=== PATIENT | female | born 1995 | race Caucasian/White ===

== ENCOUNTER → 2020-10-16 10:03 | Outpatient (CLI) | payer OTHER, SELFPAY ==
[2020-10-16 12:24] LABS: Add Manual Diff / Slide Review NO; Basophils Absolute Auto 0 /uL (0-100); Basophils Percent Auto 0.4 % (0-2); Eosinophils Absolute Auto 0 /uL (0-450); Eosinophils Percent Auto 0.4 % (2-4); Hematocrit 36.7 % (36-46); Hemoglobin 12.5 g/dL (12.0-16.0); Lymphocytes Absolute Auto 2200 /uL (1100-4500); Lymphocytes Percent Auto 22.1 % (25-40); Mean Corpuscular HGB Conc 34.1 % (30-36); Mean Corpuscular Hemoglobin 29.7 PG (26-34); Monocytes Absolute Auto 600 /uL (0-900); Monocytes Percent Auto 6.2 % (3-14); Neutrophils Absolute Auto 6900 /uL (1500-7000); Neutrophils Percent Auto 70.9 % (50-75); Platelet Count 205 X10^3/uL (150-400); Red Blood Cell Count 4.22 X10^6/uL (4.0-5.2); Red Cell Distribution Width 12.7 % (11.6-14.8); White Blood Cell Count 9.8 X10^3/uL (4.5-11.0)
[2020-10-16 12:40] LABS: Alanine Aminotransferase 9 IU/L (<35); Albumin 3.3 g/dL (3.5-5.0); Albumin Globulin Ratio 1.1 (1.0-2.8); Alkaline Phosphatase 92 U/L (38-126); Aspartate Aminotransferase 18 IU/L (14-36); BUN Creatinine Ratio 8.3 (6-22); Bilirubin Total 0.3 mg/dL (0.2-1.3); Blood Urea Nitrogen 3 mg/dL (7-17); Calcium 8.6 mg/dL (8.4-10.2); Carbon Dioxide 23 mmol/L (22-32); Chloride 106 mmol/L (98-107); Estimated Glomerular Filt Rate > 60.0 mL/min (>60); GTT (PREG) 1 Hour PP 50gm Dose 131 mg/dL (76-139); Globulin 3.1 g/dL (1.7-4.1); Glucose 131 mg/dL (70-100); HEMOLYSIS < 15 (0-50); Potassium 4.2 mmol/L (3.4-5.1); Sodium 133 mmol/L (137-145); Total Protein 6.4 g/dL (6.3-8.2); Uric Acid 2.7 mg/dL (2.5-6.2)
[2020-10-16 20:39] LABS: Creatinine Urine Random 76.5 mg/dL; Protein (Total) Urine Random < 5 mg/dL (0-12); Protein Creatinine Ratio Urine 0.06 GRAM/24H
== END ==
PROVIDERS: Referring Provider Family Medicine; Visit Provider Family Medicine
DX: O26.899 Other specified pregnancy related conditions, unspecified trimester (principal); Z67.91 Unspecified blood type, Rh negative; I10 Essential (primary) hypertension
CPT/HCPCS: 36415; 80053; 82570; 82950; 84156; 84550; 85025; 86850

== ENCOUNTER → 2020-10-23 07:38 | Outpatient (CLI) | payer OTHER, SELFPAY ==
[2020-10-23 09:01] LABS: Collection Time Urine 24 Hours; Protein (Total) Urine Random 6 mg/dL (0-12); Total Protein 24 Hour Urine 83 mg/day (42-225); Total Volume Urine 1375 mL
== END ==
PROVIDERS: Referring Provider Family Medicine; Visit Provider Family Medicine
DX: I10 Essential (primary) hypertension (principal); Z3A.30 30 weeks gestation of pregnancy
CPT/HCPCS: 84156

== ENCOUNTER → 2020-10-24 12:29 | Outpatient (CLI) | payer OTHER, SELFPAY ==
--- NOTE | 2020-10-24 12:30 | DI.US.S_ITS ---
PROCEDURE: US OB LIMITED INDICATIONS: SIZE LESS THAN DATES OUTSIDE/PRIOR DATING DATA: Last menstrual period (LMP): 03/17/2020 . LMP-based estimated date of delivery (TARAH): 12/22/2020 . First dating scan (date and location): 07/26/2020 . Estimated date of delivery (TARAH) from first dating scan: 12/29/2020 . TECHNIQUE: Real-time scanning was performed of the fetus, with image documentation. Endovaginal scanning: None COMPARISON: None. FINDINGS: A single living intrauterine gestation is present. Presentation: Vertex. Placenta: Placental position is anterior, without previa. Amniotic fluid index: 20.8 cm, normal range is 5-24 cm. heart rate: 127 beats per minute. Maternal cervical canal: Not well seen Biparietal diameter: 7.9 cm, 31 week 6 day Head circumference: 29.1 cm, 32 week 0 day Abdominal circumference: 26.4 cm, 30 week 4 day Femur length: 6.0 cm, 31 week 3 day EGA by initial ultrasound: 30 week 4 day Composite gestational age today: 31 week 3 day Estimated weight: 1693 g, 55th percentile IMPRESSION: Single live intrauterine corresponding with 30 week 4 day gestation by ultrasound Approved by: Brannon Vitale M.D. on 10/24/2020 at 16:53
== END ==
PROVIDERS: Referring Provider Family Medicine; Visit Provider Family Medicine
DX: Z36.4 Encounter for antenatal screening for fetal growth retardation (principal); Z3A.31 31 weeks gestation of pregnancy
CPT/HCPCS: 76815

== ENCOUNTER 2020-11-07 10:41 | Emergency (ER) | payer OTHER, SELFPAY ==
[2020-11-07] VITALS (8 sets, daily range): BP systolic 106–126; BP diastolic 56–76; PULSE 76–96; RESP 14–20; TEMP 36.8; O2SAT 97–99; BMI 26.4
[2020-11-07 11:05] LABS: Add Manual Diff / Slide Review NO; Basophils Absolute Auto 0 /uL (0-100); Basophils Percent Auto 0.5 % (0-2); Eosinophils Absolute Auto 0 /uL (0-450); Eosinophils Percent Auto 0.4 % (2-4); Hematocrit 35.2 % (36-46); Hemoglobin 12.1 g/dL (12.0-16.0); Lymphocytes Absolute Auto 1700 /uL (1100-4500); Lymphocytes Percent Auto 17.3 % (25-40); Mean Corpuscular HGB Conc 34.3 % (30-36); Mean Corpuscular Hemoglobin 29.3 PG (26-34); Mean Corpuscular Volume 85.6 fL (80-100); Monocytes Absolute Auto 700 /uL (0-900); Monocytes Percent Auto 7.2 % (3-14); Neutrophils Absolute Auto 7300 /uL (1500-7000); Neutrophils Percent Auto 74.6 % (50-75); Platelet Count 206 X10^3/uL (150-400); Red Blood Cell Count 4.12 X10^6/uL (4.0-5.2); Red Cell Distribution Width 12.8 % (11.6-14.8); White Blood Cell Count 9.8 X10^3/uL (4.5-11.0)
[2020-11-07 11:11] LABS: HEMOLYSIS < 15 (0-50)
[2020-11-07 11:16] LABS: Alanine Aminotransferase 7 IU/L (<35); Albumin 3.2 g/dL (3.5-5.0); Alkaline Phosphatase 117 U/L (38-126); Aspartate Aminotransferase 18 IU/L (14-36); BUN Creatinine Ratio 16.1 (6-22); Bilirubin Total 0.4 mg/dL (0.2-1.3); Blood Urea Nitrogen 5 mg/dL (7-17); Calcium 8.6 mg/dL (8.4-10.2); Carbon Dioxide 22 mmol/L (22-32); Chloride 107 mmol/L (98-107); Creatine Kinase < 20 U/L (30-135); Estimated Glomerular Filt Rate > 60.0 mL/min (>60); Globulin 3.3 g/dL (1.7-4.1); Glucose 86 mg/dL (70-100); Lipase 30 U/L (23-300); Potassium 3.8 mmol/L (3.4-5.1); Sodium 132 mmol/L (137-145); Total Protein 6.5 g/dL (6.3-8.2)
--- NOTE | 2020-11-07 11:26 | ED_ITS ---
HPI - Chest Pain General Chief Complaint: Chest Pain Stated Complaint: Chest Pain and near syncope 34 wks Time Seen by Provider: 11/07/20 10:45 Source: patient and EMS Mode of arrival: EMS Limitations: no limitations History of Present Illness HPI narrative: Patient is a 24-year-old female. Otherwise healthy. Is 34 weeks . Not having cramping. No vaginal bleeding. No loss of fluid. No fevers. Is under immunized against COVID-19. Was brought in by EMS for evaluation. She states that this morning she was generally not feeling very well. She was told to go to the medical department on the [facility]. At the medical department she describes some chest discomfort and some problems allie thing. EMS was called. She did receive fentanyl prior to arrival. She states that her daughter was recently diagnosed with RSV. The patient does have sinus congestion and postnasal drip and also your discomfort. She has not tried anything for the symptoms prior to arrival. She did not pass out but felt like she was going to pass out. The time my evaluation she did report improvement of symptoms. Related Data Home Medications Medication Instructions Recorded Confirmed prenat.vits,chelo,[id number] 1 tab PO DAILY 10/09/20 10/27/20 Allergies Allergy/AdvReac Type Severity Reaction Status Date / Time No Known Drug Allergies Allergy Verified 11/07/20 10:46 Review of Systems Constitutional Comments: No fevers ENT Ears, Nose, Mouth, and Throat: Reports as per HPI Cardiovascular Cardiovascular: Reports system reviewed and no additional complaints, except as documented Respiratory Respiratory: Reports system reviewed and no additional complaints, except as documented Gastrointestinal Gastrointestinal: Reports system reviewed and no additional complaints, except as documented Genitourinary Genitourinary: Reports system reviewed and no additional complaints, except as documented Integumentary/Breasts Skin/Breast: Reports system reviewed and no additional complaints, except as doc umented Neurologic Neurologic: Reports as per HPI Hematologic/Lymphatic On Anticoagulants: No Allergic/Immunologic Allergic/Immunologic: Reports system reviewed and no additional complaints, except as documented Patient History Medical History Acid reflux Anxiety Chronic hypertension Depression Dermographia Gastric ulcer History of being hospitalized (~08/2019) Hyperemesis (~12/30/19) Kidney infection (~08/2019) Ovarian cyst during (~2019) Post depression induced hypertension (~2019) (spontaneous vaginal delivery) (~08/11/19) Surgical History (Updated 10/09/20 @ 12:56 by Myra Corbin RN) History of esophagogastroduodenoscopy (EGD) Family History (Updated 10/09/20 @ 12:49 by Myra Corbin RN) Father Diabetes mellitus Type 2 diabetes mellitus Obesity Mother Hypertension Arthritis Acid reflux Grandfather Heavy smoker Cancer Lung cancer Grandmother Cancer Colon cancer Colostomy present Grandfather Cardiac anomaly Grandmother No problems noted. Family/Other Skin cancer Sister Anxiety Depression Seizures Social History marital status: number of children: 1 household members: children lives independently: Yes pets and animals: Yes (X 2 black labs back home in [place]) education level: high school (Plans to go to College still : considering Teaching Early Ed. ? 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) current occupational exposures/hazards: Yes special terrie needs: No Smoking Status: Never smoker second hand exposure: No alcohol intake: former (pre- : on occasion (rare)) substance use type: does not use Smoking Status: Never smoker alcohol intake frequency: holidays/special occasions only Substance Use Type: does not use Exam Initial Vital Signs Initial Vital Signs: Vital Signs Temperature 98.3 F 11/07/20 10:40 Pulse Rate 96 H 11/07/20 10:40 Respiratory Rate 14 11/07/20 10:40 Blood Pressure 115/76 11/07/20 10:40 Pulse Oximetry 97 11/07/20 10:40 Const General: cooperative, comfortable and well developed [facility] Head: normal to inspection and normocephalic Eyes General: appearance normal, both eyes and all related structures Resp Effort & Inspection: normal respiratory effort Auscultation: clear to auscultation bilaterally Cardio Rate: regular rate Rhythm: regular rhythm GI Other: Gravid abdomen Skin General: no rashes or lesions noted Lesions: no lesions Neuro General: patient alert, patient awake, patient oriented x3 and moves all extr emities Extrem General: normal to inspection and capillary refill normal Psych Appearance: grossly normal and well kempt Scores [facility] [place] coma scale eye opening: Spontaneous [place] coma scale verbal response: Orientated [place] coma scale motor response: Obey commands [place] coma scale total score: 15 Course Orders Ordered: ED Orders 11/07/20 10:48 EKG-12 Lead Stat 11/07/20 11:00 Complete Blood Count AUTO DIFF Stat Comprehensive Metabolic Panel Stat Lipase Stat Troponin & CK Cardiac Panel Stat 11/07/20 11:36 COVID19 -Nasal swab/Pre-Proc Stat Vital Signs Vital signs: Vital Signs - 8 hr 11/07/20 10:40 11/07/20 10:44 11/07/20 10:46 Temperature 98.3 F Pulse Rate 96 H Respiratory Rate 14 Blood Pressure 115/76 119/74 Pulse Oximetry 97 98 11/07/20 11:00 11/07/20 11:30 11/07/20 12:00 Temperature Pulse Rate 84 76 79 Respiratory Rate 15 16 20 Blood Pressure 126/74 116/75 125/59 L Pulse Oximetry 97 98 99 11/07/20 12:30 11/07/20 13:24 Temperature Pulse Rate 80 95 H Respiratory Rate 16 Blood Pressure 107/56 L 106/71 Pulse Oximetry 98 99 MDM - Chest Pain Lab Data Attestation: I reviewed the patient's lab results. Result diagrams: 11/07/20 11:00 11/07/20 11:00 Labs: Lab Results 11/07/20 11/07/20 11/07/20 Range/Units 11:00 11:00 11:36 WBC 9.8 (4.5-11.0) X10^3/uL RBC 4.12 (4.0-5.2) X10^6/uL Hgb 12.1 (12.0-16.0) g/dL Hct 35.2 L (36-46) % MCV 85.6 (80-100) fL MCH 29.3 (26-34) PG MCHC 34.3 (30-36) % RDW 12.8 (11.6-14.8) % Plt Count 206 (150-400) X10^3/uL Neut % (Auto) 74.6 (50-75) % Lymph % (Auto) 17.3 L (25-40) % Tillman % (Auto) 7.2 (3-14) % Eos % (Auto) 0.4 L (2-4) % Baso % (Auto) 0.5 (0-2) % Neut # (Auto) 7300 H (1597-4422) /uL Lymph # (Auto) 1700 (6345-8150) /uL [place]man # (Auto) 700 (0-900) /uL Eos # (Auto) 0 (0-450) /uL Baso # (Auto) 0 (0-100) /uL Sodium 132 L (137-145) mmol/L Potassium 3.8 (3.4-5.1) mmol/L Chloride 107 (98-107) mmol/L Carbon Dioxide 22 (22-32) mmol/L BUN 5 L (7-17) mg/dL Creatinine 0.31 L (0.52-1.04) mg/dL Estimated GFR > 60.0 (>60) mL/min BUN/Creatinine Ratio 16.1 (6-22) Glucose 86 (70-100) mg/dL Calcium 8.6 (8.4-10.2) mg/dL Total Bilirubin 0.4 (0.2-1.3) mg/dL AST 18 (14-36) IU/L ALT 7 (<35) IU/L Alkaline Phosphatase 117 (38-126) U/L Total Creatine Kinase < 20 L (30-135) U/L CK-MB (CK-2) TNP CK-MB (CK-2) Rel Index TNP Troponin I < 0.012 (0.01-0.034) ng/mL Total Protein 6.5 (6.3-8.2) g/dL Albumin 3.2 L (3.5-5.0) g/dL Globulin 3.3 (1.7-4.1) g/dL Albumin/Globulin Ratio 1.0 (1.0-2.8) Lipase 30 (23-300) U/L SARS-CoV-2 (PCR) Negative (Negative) Urine Dip Bedside Urine Glucose Negative Bedside Urine Bilirubin - Negative Bedside Urine Ketone +++ 80 Urine Specific [place] 1.020 Bedside Urine Occult Blood - Negative Bedside Urine pH 7.0 Bedside Urine Protein +/- 15 Bedside Urine Urobilinogen - Negative Bedside Urine Nitrite - Negative Bedside Urine Leukocytes - Negative Esterase ECG Data Attestation: I personally reviewed and interpreted this ECG as follows: Interpretation: Sinus rhythm Ventricular rate 91 Sinus arrhythmia Normal QRS Normal QTC No ST T wave changes MDM Narrative Medical decision making narrative: EKG is unremarkable, she is not having any lifestyle coordinator related symptoms. Urine has ketones. Patient states she has not been drinking well the past couple days. She is not clinically dehydrated. Low suspicion for ACS. heart tones showed appropriate heart rate. Feel that we can hold on further workup for now. She was given return precautions and follow-up instructions. She expressed understanding and agreement. Discharge Plan Departure Patient Disposition: Home Clinical Impression: , Lightheadedness Instructions: DI for -- Discomforts and Remedies Activity Restrictions/Additional Instructions: I do recommend that you increase your fluid intake. Keep all of your scheduled medical appointments. Return to the emergency department for any new or worsening symptoms Prescriptions: No Action prenat.vits,chelo,[id number] Tablet 1 tab PO DAILY RF: 0 Referrals: Cassidy Joy MD [Primary Care Provider] -
[2020-11-07 11:30] LABS: Troponin I < 0.012 ng/mL (0.01-0.034)
[2020-11-07 12:06] LABS: COVID19 -Nasal RAPID Negative (Negative)
== END 2020-11-07 13:25 | disposition home or self-care (01) ==
PROVIDERS: Emergency Provider Emergency Medicine; PCP Family Medicine
DX: O26.893 Other specified pregnancy related conditions, third trimester (principal); R07.9 Chest pain, unspecified; R42 Dizziness and giddiness; Z3A.34 34 weeks gestation of pregnancy; Z20.822 Contact with and (suspected) exposure to COVID-19
CPT/HCPCS: 36415; 80053; 81003; 82550; 83690; 84484; 85025; 87635; 93005; 93010; 99284; C9803

== ENCOUNTER → 2020-11-16 10:46 | Outpatient (CLI) | payer OTHER, SELFPAY ==
--- NOTE | 2020-11-16 10:47 | DI.US.S_ITS ---
PROCEDURE: US OB LIMITED INDICATIONS: GROWTH, SIZE<DATES OUTSIDE/PRIOR DATING DATA: Last menstrual period (LMP): 03/17/2020. LMP-based estimated date of delivery (TARAH): 12/22/2020 . First dating scan (date and location): 07/26/2020 . Estimated date of delivery (TARAH) from first dating scan: 12/29/2020 . TECHNIQUE: Real-time scanning was performed of the fetus, with image documentation and biometric measurements. Endovaginal scanning: No COMPARISON: [facility], OB LIMITED, 10/24/2020, 13:36. FINDINGS: General: A single living intrauterine gestation is present. Presentation: Vertex. Placenta: Placental position is anterior , without previa. Amniotic fluid index: 10.3 cm, normal range is 5-24 cm. heart rate: 117 beats per minute. Maternal cervical canal: Not well seen. biometrics: Biparietal diameter: 34 weeks 5 days Head circumference: 34 weeks 3 days Abdominal circumference: 33 weeks Femur length: 34 weeks 5 days Estimated gestational age from initial scan: 33 weeks 6 days Composite gestational age from present scan: 34 weeks 2 days Estimated weight and percentile: 2285 g; 40 second percentile Measurement variability for biometric dating: +/- 7 days from 14 weeks to 15 weeks 6 days gestation, +/- 10 days from 16 weeks to 21 weeks 6 days gestation, +/- 2 weeks from 22 weeks to 27 weeks 6 days gestation, +/- 3 weeks for 28 weeks gestation or later. weight reference: 4500 g or EFW >90/95% is considered macrosomia or large for gestational age. EFW <10% is small for gestational age. EFW 5% or less is considered intra-uterine growth restriction. Other: Not applicable. IMPRESSION: Single living IUP redemonstrated and interval growth is normal. Dictated by: Han Vaz [facility] Interpreted: Figueroa Elmore MD on 11/16/2020 at 11:58 Transcribed by: RAY on 11/16/2020 at 12:00 Approved by: Figueroa Elmore M.D. on 11/16/2020 at 16:16
== END ==
PROVIDERS: PCP Family Medicine; Referring Provider Family Medicine; Visit Provider Family Medicine
DX: Z34.93 Encounter for supervision of normal pregnancy, unspecified, third trimester (principal); Z3A.34 34 weeks gestation of pregnancy
CPT/HCPCS: 76815

== ENCOUNTER → 2020-11-28 09:31 | Outpatient (CLI) | payer OTHER, SELFPAY ==
[2020-11-28 10:45] LABS: Alanine Aminotransferase 8 IU/L (<35); Albumin 3.3 g/dL (3.5-5.0); Alkaline Phosphatase 130 U/L (38-126); Aspartate Aminotransferase 18 IU/L (14-36); Bilirubin Total 0.3 mg/dL (0.2-1.3); Blood Urea Nitrogen 5 mg/dL (7-17); Calcium 8.8 mg/dL (8.4-10.2); Carbon Dioxide 23 mmol/L (22-32); Chloride 107 mmol/L (98-107); Estimated Glomerular Filt Rate > 60.0 mL/min (>60); Globulin 3.3 g/dL (1.7-4.1); Glucose 106 mg/dL (70-100); HEMOLYSIS < 15 (0-50); Potassium 3.9 mmol/L (3.4-5.1); Sodium 134 mmol/L (137-145); Total Protein 6.6 g/dL (6.3-8.2)
[2020-11-29 08:17] LABS: Strep Grp B PCR NEG for Grp B Strep
[2020-11-29 11:10] LABS: Bile Acids 2.1 umol/L (0.0-10.0)
== END ==
PROVIDERS: PCP Family Medicine; Referring Provider Family Medicine; Visit Provider Family Medicine
DX: L28.2 Other prurigo (principal); Z3A.36 36 weeks gestation of pregnancy
CPT/HCPCS: 36415; 80053; 82239; 87653

== ENCOUNTER 2020-12-11 10:11 | Inpatient (IN) | payer OTHER, SELFPAY ==
--- NOTE | 2020-12-11 11:23 | PM.OBHP.1 ---
OB HPI Date/Time Date of admission: 12/11/20 Date Patient Seen: 12/11/20 Time Patient Seen: 12:20 History of Present Condition Chief complaint: : 2 Para: 1 Estimated Date of Delivery: 12/22/20 Estimated Gestational Age (weeks): 38w3d Narrative: Nafisa Belcher is a 25 year old at 38w3d who presented with painful contractions. Pt reports contractions started around 2:30am, increasing in frequency and intensity since then. No LOF or vaginal bleeding. She is feeling her baby move regularly. History of Present care: limited care and pounds weight gain (14) Dating criteria: LMP confirmed by 1st trimester US Ultrasounds: normal 1st trimester US and normal mid trimester US Obstetrical complications: none Medical complications: none Preadmission Labs Blood type: 0 (-) negative (Rhogam given 10/16/20) -: Antibody screen: negative, GBS status: negative, HBsAG: negative, HIV: negative and RPR/VDLR: negative -: Rubella: immune and Varicella: immune HCT: 35.2 HCAB: negative 1 hr GTT: 131 Prior (ies) History: 08/11/19 - at 39wks after IOL for gHTN. 5wl30pd female. No complications with delivery. Evaluation Evaluation Baseline heart rate: 125 Variability: Moderate (11-25) monitor accelerations: Present Monitor Decelerations: Absent Contraction Frequency (minutes): 2 Uterine Contraction Intensity: Strong/Firm Status: Category l Cervical dilation (cm): 5 Cervical effacement (%): 90 station: -1 [facility] Medical History Acid reflux Anxiety Chronic hypertension Depression Dermographia Gastric ulcer History of being hospitalized (~08/2019) Hyperemesis (~12/30/19) Kidney infection (~08/2019) Ovarian cyst during (~2019) Post depression induced hypertension (~2019) (spontaneous vaginal delivery) (~08/11/19) Surgical History (Updated 10/09/20 @ 12:56 by Myra Corbin RN) History of esophagogastroduodenoscopy (EGD) Family History (Updated 10/09/20 @ 12:49 by Myra Van Rooyen, RN) Father Diabetes mellitus Type 2 diabetes mellitus Obesity Mother Hypertension Arthritis Acid reflux Grandfather Heavy smoker Cancer Lung cancer Grandmother Cancer Colon cancer Colostomy present Grandfather Cardiac anomaly Grandmother No problems noted. Family/Other Skin cancer Sister Anxiety Depression Seizures Social History marital status: number of children: 1 household members: children lives independently: Yes pets and animals: Yes (X 2 black labs back home in [place]) education level: high school (Plans to go to College still : considering Teaching Early Ed. ? 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) current occupational exposures/hazards: Yes special terrie needs: No Smoking Status: Never smoker second hand exposure: No alcohol intake: former (pre- : on occasion (rare)) substance use type: does not use Meds Home Medications and Allergies Home Medications Medication Instructions Recorded Confirmed Type prenat.vits,chelo,[id number] 1 tab PO DAILY 10/09/20 12/11/20 History triamcinolone acetonide 0.05 % 1 applic TOPICAL BID #110 g 11/28/20 12/11/20 Rx topical ointment Allergies Allergy/AdvReac Type Severity Reaction Status Date / Time No Known Drug Allergies Allergy Verified 11/07/20 10:46 Exam Const General: cooperative, healthy appearing and comfortable Orientation: alert, awake and oriented x3 Resp Effort & Inspection: normal respiratory effort Auscultation: clear to auscultation bilaterally Cardio Rate: regular rate Rhythm: regular rhythm Heart Sounds: S1 normal, S2 normal and no murmurs GI Inspection: non-distended Palpation: soft and No tender Other: gravid Presentation: vertex Extrem General: no clubbing, cyanosis or edema Objective Labs Result Diagrams: 12/11/20 11:35 Assessment and Plan Assessment and Plan Assessment and Plan narrative: 25yo at 38w3d presenting in active labor. No complications with . Rh negative, GBS negative. - Expectant management, anticipate - FHT reassuring - Natural methods for pain control. Pt using nitrous as well. - GBS negative, no prophylaxis indicated - Cord blood after delivery for Rh status
[2020-12-11 11:46] LABS: Add Manual Diff / Slide Review NO; Basophils Absolute Auto 100 /uL (0-100); Basophils Percent Auto 0.4 % (0-2); Eosinophils Absolute Auto 0 /uL (0-450); Eosinophils Percent Auto 0.1 % (2-4); Hematocrit 37.4 % (36-46); Hemoglobin 12.3 g/dL (12.0-16.0); Lymphocytes Absolute Auto 1700 /uL (1100-4500); Lymphocytes Percent Auto 11.9 % (25-40); Mean Corpuscular Hemoglobin 26.8 PG (26-34); Mean Corpuscular Volume 81.3 fL (80-100); Monocytes Absolute Auto 600 /uL (0-900); Monocytes Percent Auto 4.5 % (3-14); Neutrophils Absolute Auto 12000 /uL (1500-7000); Neutrophils Percent Auto 83.1 % (50-75); Platelet Count 213 X10^3/uL (150-400); Red Cell Distribution Width 13.4 % (11.6-14.8); White Blood Cell Count 14.4 X10^3/uL (4.5-11.0)
[2020-12-11 11:57] LABS: COVID19 -Nasal RAPID Negative (Negative)
[2020-12-11] MEDS: LACTATED RINGERS 1,000 ML 100 ML IV ×2 (14:31→15:22)
[2020-12-11] MEDS: FENT 2MCG/ML BUPIV 0.125% EPI 200 MCG/100 ML PLAST..BAG 12 MCG EPIDURAL (15:11)
--- NOTE | 2020-12-11 15:13 | PM.AN.REGBLK ---
Regional Block Pre-procedure Procedure: Continuous Lumbar Epidural for L&D Attending OB provider: Cassidy Joy PMH/ROS narrative: , HTN, anxiety Hx: No personal or family history of anesthesia problems. PSH/Anesthesia history narrative: previous epidural complicated by infection. Was told has scoliosis. Exam narrative: Slight curvature lower back, ASA Class: III Labs: Hct 37.4 % (36-46) 12/11/20 11:35 Plt Count 213 X10^3/uL (150-400) 12/11/20 11:35 Medications: Current Medications Generic Name Dose Route Start Last Admin Trade Name Freq PRN Reason Stop Dose Admin Calcium Carbonate 500 mg 12/11/20 11:20 Calcium Carbonate 500 Mg Tab PO Q2HR PRN Dyspepsia Carboprost Tromethamine 250 mcg 12/11/20 11:20 Carboprost 250 Mcg/Ml Ampul IM Q90M PRN Bleeding Diphenhydramine HCl 25 mg 12/11/20 14:33 Diphenhydramine 50 Mg/Ml Vial IV Q10M PRN Pruritis Fentanyl 50 mcg 12/11/20 11:20 Fentanyl 100 Mcg/2 Ml Inj IV Q1H PRN Pain, Moderate (4-6) Lactated Ringer's 1,000 mls @ 100 mls/hr 12/11/20 11:30 12/11/20 14:31 Lactated Ringers IV 100 mls/hr CONT SHAINA Administration Oxytocin/Lactated Ringer's 30 unit in 500 mls @ 200 mls/hr 12/11/20 11:20 Oxytocin Premix IV CONT PRN Bleeding Protocol Tranexamic Acid 1,000 mg/ 100 mls @ 200 mls/hr 12/11/20 11:20 Sodium Chloride IV NOW PRN Bleeding FENT 2MCG/ML BUPIV 0.125% EPI 200 mcg in 100 mls @ 12 mls/hr 12/11/20 14:45 12/11/20 15:11 Fentanyl/Bupiv/Ns 2mcg/Ml - 0.125% EPIDURAL 12 mls/hr CONT SHAINA Administration Methylergonovine Maleate 0.2 mg 12/11/20 11:20 Methylergonovine 0.2 Mg Tablet PO Q6HR PRN Heavy Bleeding Methylergonovine Maleate 0.2 mg 12/11/20 11:20 Methylergonovine 0.2 Mg/Ml Vial IM NOW PRN Bleeding Misoprostol 800 mcg 12/11/20 11:20 Misoprostol 200 Mcg Tablet RI NOW PRN Bleeding Misoprostol 1,000 mcg 12/11/20 11:20 Misoprostol 200 Mcg Tablet RI NOW PRN Bleeding Misoprostol 400 mcg 12/11/20 11:20 Misoprostol 200 Mcg Tablet SL NOW PRN Bleeding Nalbuphine HCl 2.5 mg 12/11/20 14:33 Nalbuphine 20 Mg/Ml Ampul IV Q10M PRN Pruritis Naloxone HCl 0.2 mg 12/11/20 11:20 Naloxone 0.4 Mg/Ml Vial IV Q2MIN PRN Opiate Reversal Ondansetron HCl 4 mg 12/11/20 11:20 Ondansetron 4 Mg/2 Ml Inj IV Q4HR PRN Nausea And Vomiting Oxytocin 10 unit 12/11/20 11:20 Oxytocin 10 Unit/Ml Vial IM NOW PRN Bleeding Allergies: Allergies Allergy/AdvReac Type Severity Reaction Status Date / Time No Known Drug Allergies Allergy Verified 11/07/20 10:46 Procedure Insertion date: 12/11/20 Insertion time: 14:54 Prep/Local: betadine x3 (chloroprep) and 1% lidocaine Interspace: L2-3 Patient position: sitting Needle: 18 gauge Hustead (with 27G pencil point needle-through needle for IT dose) Loss of resistance with: saline (with air bubble) RICHARDSON at (cm): 7 Catheter placed at SKIN (cm): 12 Catheter in SPACE (cm): 5 Insertion: Yes CSF, No Blood, No Paresthesia with insertion, No Paresthesia with injection and No Test dose reaction Initial Medications TEST DOSE time: 14:54 TEST DOSE: 1.5% lidocaine with epinephrine 1:200k (mL): 5 (3mL initial test dose, 2mL as part of first bolus) BOLUS DOSE time: 14:55 BOLUS DOSE (mL): 2 BOLUS DOSE med: other (10mcg fentanyl intrathecally, 90mcg fentanyl via epidural catheter) Infusion INFUSION: 0.0625% bupivacaine and with fentanyl 2 mcg/mL Initial rate (mL/hr): 12 (with bolus of 4mL Q15min lockout) Subsequent interventions: First pass, RICHARDSON 5.5cm, dural puncture with (+) CSF, 10mcg fentanyl given. Catheter threaded with (+) blood back. Removed. Attempt at L3-4 without success (all os), retried at L2-3, RICAHRDSON 7cm, dural puncture with (+)CSF, no meds given IT. Catheter threaded easily. Post-procedure Anesthesia time START: 14:44 Anesthesia time END: 19:24 Post-procedure Anesthesia Assessment: No Anesthesia complications
[2020-12-11] MEDS: OXYTOCIN 10 UNIT/ML VIAL IM (19:34)
--- NOTE | 2020-12-11 19:48 | PM.OBPRVD ---
Labor & Delivery Delivery date: 12/11/20 Intrapartal Events: None Cervical ripening method: none Induction method: none Delivery monitor: external FHT Route of delivery: Episiotomy description: None L&D Laceration Description: None Estimated blood loss (mL): 150 Anesthesia Type: Epidural Complications: None Narrative: PROCEDURE: at 38w3d presented in active labor and was admitted to Labor and Delivery. The patient progressed through the 1st stage over 16 hours. Pain was controlled with an epidural. The patient progressed through the 2nd stage over 1 hours and delivered a viable female infant with APGARs 8/9 at 19:24 via without complications. There was a nuchal cord x1 reduced after delivery. The cord was clamped and cut after it stopped pulsating. The perineum and vagina were inspected with no lacerations. PREPROCEDURE DIAGNOSIS: Intrauterine at 38w3d GBS negative RH negative POSTPROCEDURE DIAGNOSIS: Intrauterine at 38w3d, delivered Same as preprocedure Baby 1: gender: Female Presentation: vertex Position: Right Occiput Anterior Placenta delivery description: Spontaneous Cord Vessel Description: 3 Vessels and Nuchal Cord (reduced after delivery) score (1 min): 8 score (5 min): 9 weight: 6 lb 14.125 oz Plan for aftercare: Routine care
[2020-12-11] MEDS: IBUPROFEN 600 MG TABLET PO (21:25)
[2020-12-11] MEDS: ACETAMINOPHEN 325 MG TABLET 650 MG PO (21:25)
[2020-12-12] MEDS: IBUPROFEN 600 MG TABLET PO (06:25)
--- NOTE | 2020-12-12 08:10 | P.DS_ITS ---
Discharge Providers Provider Date of admission: 12/11/20 10:11 Discharge Date: 12/12/20 Primary care physician: Cassidy Joy MD Consults: 12/12/20 19:47 Consult to Employment Evaluator/Case Manager Routine Comment: Discharge provider: Cassidy Joy MD Summary Hospital Course Date Patient Seen: 12/12/20 Time Patient Seen: 07:50 Diagnoses: 38w3d gestation Rh negative GBS negative Hospital Course: The patient presented in active labor. She received an epidural for pain control. She progressed to complete had spontaneous vaginal delivery of a viable baby girl on 12/11/2020. There were no complications with delivery. There were no lacerations to repair. , there were no complications. At the time of discharge she is voiding, ambulating, and passing flatus without difficulty. Her lochia was decreasing appropriately. Her pain was adequately controlled. She is breast-feeding with good latch. She will follow-up in 6 weeks for her check. Peripartum Data Delivery Method: Natural Vaginal Laceration Description: None Episiotomy description: None Procedures: Spontaneous vaginal delivery complications: none [place]: Gender: Female Disposition of : home Discharge Diagnosis (1) (spontaneous vaginal delivery): Status: Acute Status at Discharge Cognitive/behavioral status at discharge: oriented Functional status at discharge: independent ambulation Overall status at discharge: patient is progressing back to baseline Time Spent with Patient Time attestation: Total time spent providing and/or coordinating discharge services: Objective Labs Result Diagrams: 12/11/20 11:35 Labs: Laboratory Results - last 24 hr 12/11/20 12/11/20 12/11/20 11:10 11:35 11:35 WBC 14.4 H RBC 4.60 Hgb 12.3 Hct 37.4 MCV 81.3 MCH 26.8 MCHC 33.0 RDW 13.4 Plt Count 213 Neut % (Auto) 83.1 H Lymph % (Auto) 11.9 L Payne % (Auto) 4.5 Eos % (Auto) 0.1 L Baso % (Auto) 0.4 Neut # (Auto) 53794 H Lymph # (Auto) 1700 Payne # (Auto) 600 Eos # (Auto) 0 Baso # (Auto) 100 SARS-CoV-2 (PCR) Negative Blood Type O Negative Antibody Screen Negative Exam Narrative Exam Narrative: Gen: NAD, sitting comfortably in bed, appears well CV: RRR, no murmurs Resp: clear to auscultation bilaterally Abd: soft, appropriately tender, fundus firm and below the umbilicus, nondistended Ext: no edema Discharge Plan Discharge Plan Patient Disposition: Home Discharge orders & Medications Prescriptions: New acetaminophen 325 mg Tablet 650 mg PO Q6HR PRN (Reason: Pain, Mild (1-3)) Qty: 30 RF: 0 docusate sodium 100 mg Capsule 100 mg PO DAILY Qty: 30 RF: 0 ibuprofen 600 mg Tablet 600 mg PO Q6HR PRN (Reason: Pain, Mild (1-3)) Qty: 30 RF: 0 Continued triamcinolone acetonide 0.05 % ointment 1 applic topical BID Qty: 110 RF: 2 prenat.vits,chelo,[id number] Tablet 1 tab PO DAILY RF: 0 Follow up/Referrals: Cassidy Joy MD [Primary Care Provider] - 6 Weeks Diet/Activity/Treatments Diet: Diet as Tolerated and Regular Skin/Wound/Dressing Care Report to your healthcare provider any signs of infection, such as:: chills, fever, increased pain and unusual drainage Visit Report/Discharge Packet Instructions: DI for Labor and Delivery, Vaginal Visit Report Forms: Patient Portal/API, Stroke Signs & Symptoms Discharge Data Primary Care Provider: Cassidy Joy
[2020-12-12] MEDS: DOCUSATE 100 MG CAPSULE PO (08:33)
[2020-12-12] MEDS: PRENATAL VIT,CALC/IRON/FOLIC 1 TABLET 1 TAB PO (08:33)
[2020-12-12] MEDS: LANOLIN OINT 7 GM 1 APPLIC TOP (08:33)
[2020-12-12] MEDS: DERMOPLAST SPRAY 20% 60 ML 1 SPRAY TOP (08:34)
[2020-12-12] MEDS: ACETAMINOPHEN 325 MG TABLET 650 MG PO (08:41)
[2020-12-12 14:17] VITALS: BP 133/75; PULSE 88; RESP 18; TEMP 36.7
== END 2020-12-12 15:10 | disposition home or self-care (01) | DRG 807 ==
PROVIDERS: Admitting Provider Family Medicine; PCP Family Medicine; Referring Provider Family Medicine; Visit Provider Family Medicine
DX: O69.81X0 Labor and delivery complicated by cord around neck, without compression, not applicable or unspecified (principal); Z37.0 Single live birth; Z3A.38 38 weeks gestation of pregnancy; Z20.822 Contact with and (suspected) exposure to COVID-19
CPT/HCPCS: 01967; 59050; 59410; 85025; 86850; 86900; 86901; 87635; C9803; G0379; J2590

== ENCOUNTER → 2021-02-23 10:08 | Outpatient (CLI) | payer OTHER, SELFPAY ==
[2021-02-23 11:49] LABS: COVID19 -Nasal RAPID Negative (Negative)
== END ==
PROVIDERS: PCP Family Medicine; Visit Provider Physician Assistant
DX: Z20.822 Contact with and (suspected) exposure to COVID-19 (principal); R05.9 Cough, unspecified; R06.02 Shortness of breath; R09.89 Other specified symptoms and signs involving the circulatory and respiratory systems; R42 Dizziness and giddiness; R43.2 Parageusia
CPT/HCPCS: 87635